=== PATIENT | male | born 1995 | race African-American/Black ===

== ENCOUNTER 2017-09-23 07:48 | Emergency (ER) | payer MEDICAID, OTHER ==
[~2017-09-23] VITALS: Ht 175.3 cm; Wt 100.0 kg
[~2017-09-23 07:48] MED LIST: AMOX500T PO; C-PHSYP6 PO; Z.0.NO CURRENT MEDS
[2017-09-23 07:51] VITALS: BP 175/77; PULSE 69; RESP 14; TEMP 98.4; O2SAT 100
[2017-09-23] MEDS ORDERED: cloNIDine HCL 0.1 MG TAB PO ONE (09:15)
--- NOTE | 2017-09-23 09:18 | PD ---
HPI Chief Complaint: Dizziness Time Seen by Provider: 09:01 Travel History International Travel<30 days: No Contact w/Intl Traveler<30days: No Traveled to known affect area: No History of Present Illness HPI This patient complains of nosebleed. He had nosebleed spontaneously over the weekend. He says it bled on and off for 24 hours. No injury. He does have history of hypertension and does not treat that. Blood pressure currently 189/ 90. He denies headache or chest pain. Symptoms severity was moderate. No alleviating factors. When he had a nosebleed he also had lightheadedness and dizziness. No vertigo sensation. Mostly exacerbated by hypertension. Duration 2 days. PFSH Past Medical History Medical History: Denies Significant Hx Cancer: No Developmental Delay: No Diabetes: No Diminished Hearing: No Glaucoma: No Hepatitis: No Hiatal Hernia: No Hypertension: Yes Immunizations Current: Yes Thyroid Disease: No Tetanus Vaccination: > 5 Years Influenza Vaccination: No Past Surgical History Surgical History: No Previous Surgery Social History Alcohol Use: Yes (OCCAS) Tobacco Use: No Substance Use: No Allergies-Medications (Allergen,Severity, Reaction): Coded Allergies: No Known Allergies (Verified Adverse Reaction, Unknown, 09/23/17) Reported Meds & Prescriptions Reported Meds & Active Scripts Active No Active Prescriptions or Reported Medications Review of Systems General / Constitutional: No: Fever Eyes: No: Visual changes HENT: Positive: Lightheadedness, Nosebleed, No: Headaches Cardiovascular: No: Chest Pain or Discomfort Respiratory: No: Shortness of Breath Gastrointestinal: No: Abdominal Pain Genitourinary: No: Dysuria Musculoskeletal: No: Pain Skin: No Rash Neurologic: No: Weakness Psychiatric: No: Depression Endocrine: No: Polydipsia Hematologic/Lymphatic: No: Easy Bruising Physical Exam Narrative GENERAL: Well-nourished, well-developed patient in no apparent distress. SKIN: Focused skin assessment reveals no rash and nodules. Skin is Warm and dry. HEAD: Atraumatic. Normocephalic. EYES: Pupils equal and round. No scleral icterus. No injection or drainage. ENT: No nasal bleeding or scabbed lesions or discharge. Nasal mucosa looks pink and healthy. Mucous membranes pink and moist. NECK: Trachea midline. No JVD. CARDIOVASCULAR: Regular rate and rhythm. No murmur appreciated. RESPIRATORY: No accessory muscle use. Clear to auscultation. Breath sounds equal bilaterally. GASTROINTESTINAL: Abdomen soft, non-tender, nondistended. Hepatic and splenic margins not palpable. MUSCULOSKELETAL: No obvious deformities. No clubbing. No cyanosis. No edema. NEUROLOGICAL: Awake and alert. No obvious cranial nerve deficits. Motor grossly within normal limits. Normal speech. PSYCHIATRIC: Appropriate mood and affect; insight and judgment normal. Data Data Last Documented VS Vital Signs Date Time Temp Pulse Resp B/P (MAP) Pulse Ox O2 Delivery O2 Flow Rate FiO2 09/23/17 10:32 74 18 146/78 (100) 100 Room Air 09/23/17 07:51 98.4 Orders Orders Clonidine (Catapres) (09/23/17 09:15) Complete Blood Count With Diff (09/23/17 09:13) Basic Metabolic Panel (Bmp) (09/23/17 09:13) Iv Access Insert/Monitor (09/23/17 09:13) Labs Laboratory Tests Test 09/23/17 08:35 White Blood Count 5.6 TH/MM3 Red Blood Count 5.06 MIL/MM3 Hemoglobin 14.7 GM/DL Hematocrit 43.5 % Mean Corpuscular Volume 86.0 FL Mean Corpuscular Hemoglobin 29.0 PG Mean Corpuscular Hemoglobin Concent 33.8 % Red Cell Distribution Width 13.3 % Platelet Count 316 TH/MM3 Mean Platelet Volume 7.9 FL Neutrophils (%) (Auto) 64.2 % Lymphocytes (%) (Auto) 24.3 % Monocytes (%) (Auto) 8.5 % Eosinophils (%) (Auto) 2.6 % Basophils (%) (Auto) 0.4 % Neutrophils # (Auto) 3.6 TH/MM3 Lymphocytes # (Auto) 1.4 TH/MM3 Monocytes # (Auto) 0.5 TH/MM3 Eosinophils # (Auto) 0.1 TH/MM3 Basophils # (Auto) 0.0 TH/MM3 CBC Comment DIFF FINAL Differential Comment Blood Urea Nitrogen 14 MG/DL Creatinine 0.96 MG/DL Random Glucose 96 MG/DL Calcium Level 9.0 MG/DL Sodium Level 139 MEQ/L Potassium Level 4.1 MEQ/L Chloride Level 107 MEQ/L Carbon Dioxide Level 26.0 MEQ/L Anion Gap 6 MEQ/L Estimat Glomerular Filtration Rate 118 ML/MIN [facility] Medical Decision Making Medical Screen Exam Complete: Yes Emergency Medical Condition: Yes Medical Record Reviewed: Yes Differential Diagnosis Hypertensive urgency, epistaxis, accelerated hypertension Narrative Course I have reviewed the patient's electronic medical record. I gave him a dose of clonidine and will reassess pressure He is neurologically intact and no active bleeding now IV placed CBC is normal Metabolic profile is normal Repeat blood pressure 148/76 He's not had a nose bleeding in the interim He will check and record daily and has a primary physician appointment in 1 week Diagnosis Primary Impression: Epistaxis Additional Impression: Accelerated hypertension Additional Instructions: Check and record blood pressure daily The patient was advised to follow up with their physician and return if they worsen. Med/Other Pt SpecificInfo: Other Scripts No Active Prescriptions or Reported Meds Disposition: DISCHARGE HOME Condition: Stable Dio Hilliard MD Sep 23, 2017 09:18
[2017-09-23 09:45] LABS: AUTOMATED NEUTROPHIL # 3.6 TH/MM3 (1.8-7.7); BASOPHIL % 0.4 % (0.0-2.0); EOSINOPHIL # 0.1 TH/MM3 (0-0.4); EOSINOPHIL % 2.6 % (0.0-4.0); HEMATOCRIT 43.5 % (39.0-51.0); HEMOGLOBIN 14.7 GM/DL (13.0-17.0); LYMPH % 24.3 % (9.0-44.0); LYMPHOCYTE # 1.4 TH/MM3 (1.0-4.8); MEAN CORPUSCULAR HGB CONC 33.8 % (32.0-36.0); MEAN PLATELET VOLUME 7.9 FL (7.0-11.0); MONO % 8.5 % (0.0-8.0); MONOCYTE # 0.5 TH/MM3 (0-0.9); NEUT % 64.2 % (16.0-70.0); PLATELET COUNT 316 TH/MM3 (150-450); RED BLOOD COUNT 5.06 MIL/MM3 (4.50-5.90); RED CELL DISTRIBUTION WIDTH 13.3 % (11.6-17.2); WHITE BLOOD COUNT 5.6 TH/MM3 (4.0-11.0)
[2017-09-23 10:10] LABS: CREATININE 0.96 MG/DL (0.60-1.30)
[2017-09-23 10:32] VITALS: BP 146/78; PULSE 74; RESP 18; O2SAT 100
== END 2017-09-23 11:45 | disposition home or self-care (01) ==
LOC: NEPC 07:48
DX: R04.0 Epistaxis (principal); I10 Essential (primary) hypertension
CPT/HCPCS: 80048; 85025; 99283